=== PATIENT | male | born 1955 | race Caucasian/White ===

== ENCOUNTER 2017-01-13 07:54 | Emergency (ER) | payer OTHER | END 2017-01-13 08:46 | disposition home or self-care (01) | LOC: SCSER 07:54 | DX: G56.02 Carpal tunnel syndrome, left upper limb (principal); E11.9 Type 2 diabetes mellitus without complications; I10 Essential (primary) hypertension; F17.220 Nicotine dependence, chewing tobacco, uncomplicated; Z79.899 Other long term (current) drug therapy | CPT/HCPCS: 36416; 99284 ==

== ENCOUNTER 2023-08-29 10:36 | Outpatient (CLI) | payer BC | END 2023-08-29 10:37 | disposition home or self-care (01) | LOC: SCSMRI 10:36 | PROVIDERS: ATTEND Orthopaedic Surgery | DX: M75.101 Unspecified rotator cuff tear or rupture of right shoulder, not specified as traumatic (principal); M19.011 Primary osteoarthritis, right shoulder; S46.111A Strain of muscle, fascia and tendon of long head of biceps, right arm, initial encounter; Z87.39 Personal history of other diseases of the musculoskeletal system and connective tissue ==

== ENCOUNTER 2024-01-17 11:52 | Outpatient (CLI) | payer BC | END 2024-01-17 11:53 | disposition home or self-care (01) | LOC: SCSRAD 11:52 | PROVIDERS: ATTEND Internal Medicine Rheumatology | DX: M54.50 Low back pain, unspecified (principal); M25.50 Pain in unspecified joint; M47.816 Spondylosis without myelopathy or radiculopathy, lumbar region; M89.9 Disorder of bone, unspecified | CPT/HCPCS: 72110 ==